=== PATIENT | male | born 2000 | race Hispanic/Latino ===

== ENCOUNTER 2023-06-28 07:07 | Emergency (ER) | payer OTHER ==
[~2023-06-28] VITALS: Ht 175.3 cm; Wt 76.3 kg
[2023-06-28 07:09] VITALS: BP 119/66; TEMP 96.2; O2SAT 99
[2023-06-28] MEDS ORDERED: AMOX500C PO (08:09)
== END 2023-06-28 09:05 | disposition home or self-care (01) ==
LOC: M ED 07:07
DX: H65.03 Acute serous otitis media, bilateral (principal); Z79.2 Long term (current) use of antibiotics